=== PATIENT | female | born 1970 | race Caucasian/White ===

== ENCOUNTER 2016-10-12 13:48 | Emergency (ER) | payer BC ==
[~2016-10-12] VITALS: Ht 162.6 cm; Wt 70.4 kg
[~2016-10-12 13:48] MED LIST: CPR500HP PO; IBUP-1451 PO; NUVVR VAGRING; VENL75TA4 PO
[2016-10-12 13:50] VITALS: TEMP 36.4; Ht 162.6 cm; Wt 70.4 kg
[2016-10-12] MEDS ORDERED: EFFSR75 PO (13:58)
[2016-10-12] MEDS ORDERED: ZOLP10TA6 PO (13:58)
[2016-10-12 14:23] LABS: BASO % 0.3 %; BASO ABS # 0.03 K/uL (0-0.2); COMPLETE YES; HEMATOCRIT 38.4 % (37-47); IG% 0.3 %; LYMPH % 29.1 %; LYMPH ABS # 2.78 K/uL (1.2-3.4); MEAN CORPUSCULAR HEMOGLOBIN 33.4 pg (25-34); MEAN CORPUSCULAR HGB CONC 34.1 g/dl (32-36); MEAN PLATELET VOLUME 9.4 fL (7.4-10.4); MONO % 4.6 %; NEUT % 64.7 %; PLATELET COUNT 309 K/uL (130-400); RED BLOOD COUNT 3.92 M/uL (4.2-5.4); WHITE BLOOD COUNT 9.56 K/uL (4.8-10.8)
[2016-10-12] MEDS ORDERED: OPTIRAY 320 IV PRN (14:30)
[2016-10-12 14:44] LABS: BUN/CREATININE RATIO 14.5 (10-20); CALCIUM 9.3 mg/dl (8.5-10.1); CREATININE 0.68 mg/dl (0.60-1.20); POTASSIUM 3.9 mmol/L (3.5-5.1)
--- NOTE | 2016-10-12 14:44 | DIAGNOSTIC IMAGING REPORT ---
CT HEAD WITHOUT CONTRAST (CT) CLINICAL HISTORY: Severe persistent frontal headache COMPARISON STUDY: No previous studies for comparison. TECHNIQUE: Axial CT of the brain is performed from the vertex to the skull base. IV contrast was not administered for this examination. CT DOSE: 537.48 mGy.cm FINDINGS: No intra or extra-axial mass lesions are visualized. There is no CT evidence of acute cortical infarction. There is no evidence of midline shift. There is no acute hemorrhage. No calvarial fractures are visualized. There is no evidence of pathologic ventricular dilatation. There is bilateral maxillary sinus mucosal thickening. There is a 13 mm partially calcified scalp lesion at the left vertex likely are presenting a sebaceous cyst. IMPRESSION: No acute intracranial findings Electronically signed by: Aneesh Aponte M.D. 10/12/2016 2:43 PM Dictated Date/Time: 10/12/2016 2:41 PM
[2016-10-12 14:47] LABS: ALB/GLOB RATIO 1.1 (0.9-2)
--- NOTE | 2016-10-12 14:51 | DIAGNOSTIC IMAGING REPORT ---
NECK CTA HISTORY: Headache mental status change TECHNIQUE: Multiaxial CT images of the neck were performed following the intravenous administration of contrast to evaluate the major cervical vessels. Maximum intensity projection images were also obtained. All measurements were calculated based on NASCET criteria. COMPARISON STUDY: None. FINDINGS: The aortic arch and proximal great vessels are widely patent. There is no significant stenosis, occlusion, or dissection identified within the bilateral common carotid, internal carotid, or vertebral arteries. IMPRESSION: No significant stenosis, occlusion, or dissection identified within the carotid or vertebral arteries. Electronically signed by: Indra Espinoza M.D. 10/12/2016 2:50 PM Dictated Date/Time: 10/12/2016 2:42 PM
[2016-10-12] MEDS ORDERED: KETOROLAC TROMETHAMINE 30 MG/ML VIAL IV STA (15:24)
--- NOTE | 2016-10-12 15:29 | EMERGENCY ROOM VISIT NOTE ---
History First contact with patient: 13:56 Chief Complaint: HEADACHE Stated Complaint: HEADACHE THAT WON'T GO AWAY History of Present Illness The patient is a 46 year old female who presents to the Emergency Room with complaints of a headache for the past one week. The patient reports that she has had an intermittent headache for the past one week. She does have a history of migraines and states this may feel similar. She did see a neurologist approximately 20-25 years ago and had an MRI at that time. The patient reports that the headache began the morning after she had an appointment with a chiropractor. She states that she had received an "adjustment" of her neck and back. She reports the pain is located across her forehead and into the back of her head. She rates the discomfort an 8-9/10 at its worst. She has been taking 800 mg ibuprofen with some relief of the pain. The patient reports some phonosensitivity. She denies photosensitivity, nausea/ vomiting, numbness, weakness, confusion, blurred vision, slurred speech or neck pain. Review of Systems A complete 10-point Review of Systems was discussed with the patient, with pertinent positives and negatives listed in the History of Present Illness. All remaining Review of Systems questions can be considered negative unless otherwise specified. Past Medical/Surgical History Medical Problems: (1) No known problems Family History Cancer Diabetes mellitus FHx: lung disease Hypertension Social History Smoking Status: Current Every Day Smoker Alcohol Use: occasionally Housing Status: lives with family Occupation Status: employed Current/Historical Medications Scheduled Etonogestrel/Ethinyl Estradiol (Nuvaring), 1 EA VAGRING MONTHLY Venlafaxine Hcl (Effexor Extended Rel), 75 MG PO DAILY Zolpidem Tartrate (Zolpidem Tartrate), 10 MG PO DAILY Scheduled PRN Ibuprofen Tab (Motrin), 800 MG PO Q8H PRN for Pain Allergies Coded Allergies: Penicillins (Unverified Allergy, Intermediate, RASH, 10/12/16) Ciprofloxacin (Verified Allergy, Mild, Hives, 10/12/16) Physical Exam Vital Signs Date Time Temp Pulse Resp B/P Pulse Ox O2 Delivery O2 Flow Rate FiO2 10/12/16 16:09 61 18 126/93 99 10/12/16 15:17 69 20 116/75 98 Room Air 10/12/16 13:50 36.4 71 17 123/87 96 Room Air Physical Exam VITALS: Vitals are noted on the nurse's note and reviewed by myself. Vital signs stable. GENERAL: This is a 46-year-old female, in no acute distress, nondiaphoretic, well-developed well-nourished. SKIN: The skin was without rashes. Capillary reflex less than 2 seconds. HEAD: Normocephalic atraumatic. EARS: External auditory canals clear, tympanic membranes pearly [place] without erythema or effusion bilaterally. EYES: Pupils equal round and reactive to light and accommodation. Extraocular movements intact. MOUTH: Mucous membranes moist. Tonsils are not enlarged. Pharynx without erythema or exudate. NECK: Supple without nuchal rigidity. No lymphadenopathy. No meningismus. HEART: Regular rate and rhythm without murmurs gallops or rubs. LUNGS: Clear to auscultation bilaterally without wheezes, rales or rhonchi. ABDOMEN: Positive bowel sounds x 4. Soft, nontender to palpation. MUSCULOSKELETAL: Full range of motion in all extremities. Strength 5/5 throughout. NEURO: Patient was alert and oriented to person place and time. Normal sensation to light and sharp touch. Deep tendon reflexes 2+ throughout. No focal neurological deficits. Medical Decision & Procedures ER Provider Diagnostic Interpretation: CT HEAD WITHOUT CONTRAST (CT) FINDINGS: No intra or extra-axial mass lesions are visualized. There is no CT evidence of acute cortical infarction. There is no evidence of midline shift. There is no acute hemorrhage. No calvarial fractures are visualized. There is no evidence of pathologic ventricular dilatation. There is bilateral maxillary sinus mucosal thickening. There is a 13 mm partially calcified scalp lesion at the left vertex likely are presenting a sebaceous cyst. IMPRESSION: No acute intracranial findings NECK CTA FINDINGS: The aortic arch and proximal great vessels are widely patent. There is no significant stenosis, occlusion, or dissection identified within the bilateral common carotid, internal carotid, or vertebral arteries. IMPRESSION: No significant stenosis, occlusion, or dissection identified within the carotid or vertebral arteries. Laboratory Results 10/12/16 14:15 Red Blood Count 3.92, Mean Corpuscular Volume 98.0, Mean Corpuscular Hemoglobin 33.4, Mean Corpuscular Hemoglobin Concent 34.1, Mean Platelet Volume 9.4, Neutrophils (%) (Auto) 64.7, Lymphocytes (%) (Auto) 29.1, Monocytes (%) (Auto) 4.6, Eosinophils (%) (Auto) 1.0, Basophils (%) (Auto) 0.3, Neutrophils # (Auto) 6.18, Lymphocytes # (Auto) 2.78, Monocytes # (Auto) 0.44, Eosinophils # (Auto) 0.10, Basophils # (Auto) 0.03 10/12/16 14:15 Test 10/12/16 14:15 White Blood Count 9.56 K/uL (4.8-10.8) Red Blood Count 3.92 M/uL (4.2-5.4) Hemoglobin 13.1 g/dL (12.0-16.0) Hematocrit 38.4 % (37-47) Mean Corpuscular Volume 98.0 fL (80-100) Mean Corpuscular Hemoglobin 33.4 pg (25-34) Mean Corpuscular Hemoglobin Concent 34.1 g/dl (32-36) Platelet Count 309 K/uL (130-400) Mean Platelet Volume 9.4 fL (7.4-10.4) Neutrophils (%) (Auto) 64.7 % Lymphocytes (%) (Auto) 29.1 % Monocytes (%) (Auto) 4.6 % Eosinophils (%) (Auto) 1.0 % Basophils (%) (Auto) 0.3 % Neutrophils # (Auto) 6.18 K/uL (1.4-6.5) Lymphocytes # (Auto) 2.78 K/uL (1.2-3.4) Monocytes # (Auto) 0.44 K/uL (0.11-0.59) Eosinophils # (Auto) 0.10 K/uL (0-0.5) Basophils # (Auto) 0.03 K/uL (0-0.2) RDW Standard Deviation 45.9 fL (36.4-46.3) RDW Coefficient of Variation 12.9 % (11.5-14.5) Immature Granulocyte % (Auto) 0.3 % Immature Granulocyte # (Auto) 0.03 K/uL (0.00-0.02) Anion Gap 8.0 mmol/L (3-11) Est Creatinine Clear Calc Drug Dose 101.7 ml/min Estimated GFR () 123.3 Estimated GFR (Non- 106.4 BUN/Creatinine Ratio 14.5 (10-20) Calcium Level 9.3 mg/dl (8.5-10.1) Total Bilirubin 0.2 mg/dl (0.2-1) Aspartate Amino Transf (AST/SGOT) 15 U/L (15-37) Alanine Aminotransferase (ALT/SGPT) 25 U/L (12-78) Alkaline Phosphatase 75 U/L (45-117) Total Protein 7.5 gm/dl (6.4-8.2) Albumin 3.9 gm/dl (3.4-5.0) Globulin 3.6 gm/dl (2.5-4.0) Albumin/Globulin Ratio 1.1 (0.9-2) Medications Administered Medications (Trade) Dose Ordered Sig/Sally Route Start Time Stop Time Status Last Admin Dose Admin Ketorolac Tromethamine (Toradol Inj) 30 mg NOW STAT IV 10/12/16 15:24 10/12/16 15:26 DC 10/12/16 15:37 30 MG Medical Decision The differential diagnosis includes acute intracranial bleed, meningitis, encephalitis, mass or mass effect vertebral artery dissection,, sinusitis, infection, tumor, headache, temporal arteritis and carbon monoxide exposure, and migraine. The patient was evaluated as above. Labs were drawn and IV access was obtained. Imaging studies were performed and read by radiology as above. The patient was medicated with 30 mg Toradol IV. The patient was reassessed multiple times during their stay in the emergency department and remained in stable condition. The patient is a 46-year-old female who presents today complaining of a headache. Labs revealed no leukocytosis, anemia or concerning electrolyte abnormalities. CT of the head was unremarkable. As the patient did have a chiropractic manipulation of her neck prior to the onset of the headaches, a CTA of the neck was performed to rule out vertebral artery dissection. The patient was informed of all findings. I am not highly suspicious of meningitis or encephalitis. The patient did not appear significantly uncomfortable and he do feel this is likely secondary to a migraine. She was instructed to follow- up with her primary care provider or return sooner for worsening symptoms. Based on the patient's presentation, lab results, and imaging studies, I feel the patient is stable for outpatient treatment. The patient's case was reviewed with Dr. Norman, ED attending physician, who agreed with my assessment and treatment plan. Discharge instructions were reviewed with the patient. The patient verbalized understanding of my assessment and treatment plan and was discharged home in good condition. Impression Primary Impression: Headache Departure Information Dispostion Home / Self-Care Condition GOOD Referrals No Doctor, Assigned (PCP) Patient Instructions My [facility] Additional Instructions Continue the ibuprofen at home as needed for headaches. You should relax in a quiet, dark place for the rest of the day. Avoid any possible triggers including: cigarette smoke, caffeine, nicotine, chocolate, wine, beer, loud noises or music, or bright lights. You should schedule a follow-up appointment in 2-3 days with your Primary Care Provider or established Neurologist for further evaluation and treatment of your Headache. Return to the Emergency Department if your current symptoms worsen despite treatment course outlined above, or if you develop any of the following symptoms : intractable pain despite aforementioned treatment course, visual disturbances , loss of vision, unilateral weakness or facial drooping, slurring of speech, loss of coordination, or loss of consciousness. Problem Qualifiers Primary Impression: Headache Headache type: unspecified Headache chronicity pattern: acute headache Intractability: not intractable Qualified Codes: R51 - Headache
[2016-10-12 16:09] VITALS: BP 126/93; PULSE 61; O2SAT 99
== END 2016-10-12 16:11 | disposition home or self-care (01) ==
LOC: C.EDB 13:49 → C.EDC 16:11
DX: R51 Headache (principal); F17.200 Nicotine dependence, unspecified, uncomplicated

== ENCOUNTER 2016-12-20 17:14 | Emergency (ER) | payer BC ==
[~2016-12-20] VITALS: Ht 162.6 cm; Wt 66.9 kg
[~2016-12-20 17:14] MED LIST changes: -CPR500HP PO; +EFFSR75 PO; -VENL75TA4 PO; +ZOLP10TA6 PO
[2016-12-20 17:19] VITALS: TEMP 36.8; Ht 162.6 cm; Wt 66.9 kg
--- NOTE | 2016-12-20 17:51 | EMERGENCY ROOM VISIT NOTE ---
History Report prepared by Cynthia: Yariel Faulkner Under the Supervision of: Dr. Sg Garner M.D. First contact with patient: 17:23 Chief Complaint: PAIN (GENERALIZED) Stated Complaint: L BREAST PAIN History of Present Illness The patient is a 46 year old female who presents to the Emergency Room with complaints of persistent pain in her breast for the past few months. The patient notes that today while she was at work she felt a sharp, shooting pain in her left breast twice. She notes that she had been picking up heavy things at work when the discomfort came on. The patient notes that pressing does not make the pain worse. She has not noticed any lumps and had a normal mammogram last year. Source of History: patient Onset: past few months Position: other (left breast) Quality: sharp, other (shooting) Timing: other (persistent) Note: Denies: any lumps on breast Review of Systems See HPI for pertinent positives & negatives. A total of 10 systems reviewed and were otherwise negative. Past Medical & Surgical Medical Problems: (1) Asthma (2) Bronchitis (3) Diabetes (4) Hypertension (5) No known problems (6) Stomach problems Family History Cancer Diabetes mellitus FHx: lung disease Hypertension Social History Smoking Status: Never Smoker Alcohol Use: occasionally Housing Status: lives with family Occupation Status: employed Current/Historical Medications Scheduled Etonogestrel/Ethinyl Estradiol (Nuvaring), 1 EA VAGRING MONTHLY Venlafaxine Hcl (Effexor Extended Rel), 75 MG PO DAILY Scheduled PRN Ibuprofen Tab (Motrin), 800 MG PO Q8H PRN for Pain Allergies Coded Allergies: Penicillins (Unverified Allergy, Intermediate, RASH, 12/20/16) Ciprofloxacin (Verified Allergy, Mild, Hives, 12/20/16) Physical Exam Vital Signs Date Time Temp Pulse Resp B/P Pulse Ox O2 Delivery O2 Flow Rate FiO2 12/20/16 19:16 62 18 127/76 100 12/20/16 17:19 36.8 90 18 133/83 98 Room Air Physical Exam GENERAL: Patient is a healthy-appearing well-nourished HEAD: Normocephalic atraumatic EYES: Ocular movements intact pupils equal and react to light OROPHARYNX mucous membranes are moist no exudates present no erythema or edema present NECK: Supple no nuchal rigidity CHEST: Good equal expansion LUNGS: Clear and equal to auscultation CARDIAC: Normal S1 and S2 ABDOMEN: Soft nontender no guarding BACK: No CVA tenderness EXTREMITIES: No pain upon palpation normal muscle strength in all groups no clubbing cyanosis or edema NEURO: Patient is following commands is answering questions appropriately. Alert and oriented x3 Cranial Nerves 2-12 grossly intact Medical Decision & Procedures ER Provider Diagnostic Interpretation: X-ray results as stated below per interpretation by me and the radiologist: CHEST ONE VIEW PORTABLE HISTORY: Pt c/o left sided chest pain COMPARISON: Chest 01/30/2010. FINDINGS: The lungs are clear. Cardiac silhouette is normal in size. No pleural effusions. No pneumothorax. IMPRESSION: No acute process. Electronically signed by: Wilson Ferrell M.D. 12/20/2016 6:05 PM Dictated Date/Time: 12/20/2016 6:03 PM BREAST LIMITED UNILATERAL ULTRASOUND CLINICAL HISTORY: Left breast pain. COMPARISON STUDY: Mammogram 03/04/2016. FINDINGS: No fluid collections or masses within the left breast. IMPRESSION: No sonographic abnormality within the left breast. Of note, a follow-up diagnostic mammogram/ultrasound is required at a dedicated breast care center in a patient with breast pain. Electronically signed by: Wilson Ferrell M.D. 12/20/2016 6:31 PM Dictated Date/Time: 12/20/2016 6:29 PM ED Course 1733: Past medical records reviewed. The patient was evaluated in room B2. A complete history and physical examination was performed. 1839: At this time, I reevaluated the patient and she was resting comfortably. 1850: Upon reexamination the patient is resting comfortably. I discussed results and treatment plan with the patient. She verbalizes agreement and understanding. The patient is ready for discharge. Medical Decision Differential diagnoses include chest wall pain. This is a 46-year-old female who presents emergency department complaining of left breast pain. The patient reports the pain has been ongoing for the past several weeks. She denies any chest pain or shortness of breath. Based on the patient's complaint she was sent for an ultrasound of the breast as well as a chest x-ray however I stressed to the patient that she actually needed follow- up with the breast clinic. For this reason case management was involved in getting the patient sent up with breast clinic. Patient refused pain medication in the emergency department and was in agreement with the treatment plan. Impression Primary Impression: Breast pain, left Scribe Attestation The scribe's documentation has been prepared under my direction and personally reviewed by me in its entirety. I confirm that the note above accurately reflects all work, treatment, procedures, and medical decision making performed by me. Departure Information Dispostion Home / Self-Care Referrals No Doctor, Assigned (PCP) Forms HOME CARE DOCUMENTATION FORM, IMPORTANT VISIT INFORMATION, WORK / SCHOOL INSTRUCTIONS Patient Instructions My [facility] Additional Instructions Follow up with Breast Center You have been examined and treated today on an emergency basis only. This is not a substitute for, or an effort to provide, complete comprehensive medical care. It is impossible to recognize and treat all injuries or illnesses in a single emergency department visit. It is therefore important that you follow up closely with your PCP. Call as soon as possible for an appointment. Thank you for your time and consideration. I look forward to speaking with you again soon. Please don't hesitate to call us if you have any questions.
--- NOTE | 2016-12-20 18:07 | DIAGNOSTIC IMAGING REPORT ---
CHEST ONE VIEW PORTABLE HISTORY: Pt c/o left sided chest pain COMPARISON: Chest 01/30/2010. FINDINGS: The lungs are clear. Cardiac silhouette is normal in size. No pleural effusions. No pneumothorax. IMPRESSION: No acute process. Electronically signed by: Wilson Ferrell M.D. 12/20/2016 6:05 PM Dictated Date/Time: 12/20/2016 6:03 PM
--- NOTE | 2016-12-20 18:32 | DIAGNOSTIC IMAGING REPORT ---
BREAST LIMITED UNILATERAL ULTRASOUND CLINICAL HISTORY: Left breast pain. COMPARISON STUDY: Mammogram 03/04/2016. FINDINGS: No fluid collections or masses within the left breast. IMPRESSION: No sonographic abnormality within the left breast. Of note, a follow-up diagnostic mammogram/ultrasound is required at a dedicated breast care center in a patient with breast pain. Electronically signed by: Wilson Ferrell M.D. 12/20/2016 6:31 PM Dictated Date/Time: 12/20/2016 6:29 PM
[2016-12-20 19:16] VITALS: BP 127/76; PULSE 62; O2SAT 100
== END 2016-12-20 19:17 | disposition home or self-care (01) ==
LOC: C.EDB 17:17
DX: N64.4 Mastodynia (principal); J45.909 Unspecified asthma, uncomplicated; E11.9 Type 2 diabetes mellitus without complications; I10 Essential (primary) hypertension; Z83.3 Family history of diabetes mellitus; Z82.49 Family history of ischemic heart disease and other diseases of the circulatory system

== ENCOUNTER → 2016-12-30 | Outpatient (CLI) | payer BC ==
[~2016-12-30] MED LIST changes: -ZOLP10TA6 PO
--- NOTE | 2016-12-30 12:57 | MAMMOGRAPHY REPORT ---
UNILATERAL LEFT DIGITAL DIAGNOSTIC MAMMOGRAM TOMOSYNTHESIS WITH CAD AND TARGETED LEFT ULTRASOUND: CLINICAL HISTORY: 46-year-old woman with chronic left breast pain that significantly increased in in tensity on 12/20/2016. She reports the pain persists and is located in the lower inner quadrant. N o skin changes or nipple discharge. TECHNIQUE: Left breast tomosynthesis in addition to standard 2D mammography was performed. Current randolph rubalcava was also evaluated with a Computer Aided Detection (CAD) system. COMPARISON: Comparison is made to exams dated: 03/04/2016 mammogram, 02/27/2015 mammogram, 01/24/2014 mammogram, and 09/29/2011 mammogram - [facility]. BREAST COMPOSITION: The tissue of the left breast is heterogeneously dense, which may obscure small masses. FINDINGS: A square shaped pain marker overlies the lower inner middle one third of the left breast, denoting the area of focal pain pointed out by the patient. No new suspicious mass, architectural d istortion or cluster of microcalcifications is seen throughout the left breast. Targeted ultrasound was performed in the area of pain pointed out by the patient, in the 7:00 left b reast, 4 cm from the nipple. Additional scanning was performed in the 6:00 an adjacent 8:00 axes. Overall, no suspicious solid or cystic mass is identified. IMPRESSION: ACR BI-RADS CATEGORY 2: BENIGN, TARGETED ULTRASOUND ACR BI-RADS CATEGORY 2: BENIGN There is no mammographic or targeted sonographic evidence of malignancy. No suspicious mammographic or sonographic abnormality is seen to explain the focal left mastalgia in the 7:00 axis. Therefore , clinical follow-up is recommended. Return to annual mammogram screening schedule is recommended, February 2017. The patient has been verbally notified of the results. Approximately 10% of breast cancers are not detected with mammography. A negative mammographic repor t should not delay biopsy if a clinically suggestive mass is present. Ivis Baxter M.D. 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
== END | disposition home or self-care (01) ==
LOC: C.MAMM 08:36
PROVIDERS: ATTEND Obstetrics & Gynecology
DX: N64.4 Mastodynia (principal)

== ENCOUNTER → 2017-03-17 | Outpatient (CLI) | payer BC ==
--- NOTE | 2017-03-18 14:03 | MAMMOGRAPHY REPORT ---
BILATERAL DIGITAL SCREENING MAMMOGRAM TOMOSYNTHESIS WITH CAD: 03/17/2017 CLINICAL HISTORY: Routine screening. Patient has no complaints. TECHNIQUE: Breast tomosynthesis in addition to standard 2D mammography was performed. Current study was also evaluated with a Computer Aided Detection (CAD) system. COMPARISON: Comparison is made to exams dated: 12/30/2016 ultrasound, 12/30/2016 mammogram, 03/04/2016 mammogram, 02/27/2015 mammogram, 01/24/2014 mammogram, and 09/29/2011 mammogram - [facility]. BREAST COMPOSITION: The tissue of both breasts is heterogeneously dense, which may obscure small mas ses. FINDINGS: The parenchymal pattern is similar to prior mammograms. No developing mass, architectural distortion or cluster of suspicious microcalcifications is seen in either breast. IMPRESSION: ACR BI-RADS CATEGORY 2: BENIGN There is no mammographic evidence of malignancy. A 1 year screening mammogram is recommended. The pa tient will receive written notification of the results. Approximately 10% of breast cancers are not detected with mammography. A negative mammographic report should not delay biopsy if a clinically suggestive mass is present. Ivis Baxter M.D. 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
== END | disposition home or self-care (01) ==
LOC: C.MAMM 13:46
PROVIDERS: ATTEND Obstetrics & Gynecology
DX: Z12.31 Encounter for screening mammogram for malignant neoplasm of breast (principal)

== ENCOUNTER → 2017-04-27 | Outpatient (CLI) | payer BC | END | disposition home or self-care (01) | LOC: C.PAPS 13:42 | PROVIDERS: ATTEND Obstetrics & Gynecology | DX: Z01.419 Encounter for gynecological examination (general) (routine) without abnormal findings (principal); Z11.51 Encounter for screening for human papillomavirus (HPV) ==